=== PATIENT | female | born 1995 | race Caucasian/White ===

== ENCOUNTER 2020-02-12 17:47 | Emergency (ER) | payer OTHER ==
[2020-02-12 18:08] VITALS: BMI 23.3
[2020-02-12 19:04] LABS: EPI CELLS 2 /uL (0-25.1); HCG,QUALITATIVE URINE Positive; HYALINE CASTS 7 /uL (0-3.1); URINE APPEARANCE CLEAR; URINE BACTERIA 134 /uL (0-1359); URINE BILIRUBIN NEGATIVE (NEGATIVE); URINE COLOR YELLOW; URINE GLUCOSE (UA) NEGATIVE (NEGATIVE); URINE KETONE NEGATIVE (NEGATIVE); URINE LEUK ESTERASE 1+ (NEGATIVE); URINE NITRITE NEGATIVE (NEGATIVE); URINE PROTEIN NEGATIVE (NEGATIVE); URINE RBC 12 /uL (0-23.9); URINE WBC 121 /uL (0-25.8)
[2020-02-12] MEDS ORDERED: CEPHALEXIN MONOHYDRATE 500 MG CAPSULE (UD) PO ONE (19:43)
[2020-02-12] MEDS ORDERED: CEPHALEXIN MONOHYDRATE 500 MG CAPSULE (UD) ONE (19:46)
[2020-02-12 20:13] LABS: BASO % 0.4 % (0-2.0); EOS % 6.3 % (0-4.5); HEMATOCRIT 36.3 % (32.4-45.2); LYMPH % 28.8 % (8-40); MCH 25.8 pg (25.7-33.7); MCHC 33.1 g/dl (32.0-36.0); MEAN CELL VOLUME 78.1 fl (80-96); MEAN PLT VOLUME 7.4 fl (7.5-11.1); MONO % 5.2 % (3.8-10.2); NEUT % 59.3 % (42.8-82.8); PLATELET COUNT 340 K/MM3 (134-434); RBC 4.65 M/mm3 (3.60-5.2); RDW 13.2 % (11.6-15.6)
[2020-02-12 20:30] LABS: ALBUMIN 4.2 g/dl (3.4-5.0); CALCIUM 8.6 mg/dL (8.5-10.1)
[2020-02-12 20:31] LABS: BLOOD UREA NITROGEN 11.7 mg/dL (7-18)
[2020-02-12 20:34] LABS: CREATININE 0.6 mg/dL (0.55-1.3)
[2020-02-12 20:35] LABS: BILIRUBIN,TOTAL 0.2 mg/dL (0.2-1); TOT PROT 7.5 g/dl (6.4-8.2)
[2020-02-12 21:38] VITALS: BP 120/65; PULSE 82; TEMP 98
== END 2020-02-12 21:35 | disposition home or self-care (01) ==
LOC: JER 17:47
DX: N94.10 Unspecified dyspareunia (principal); N39.0 Urinary tract infection, site not specified
CPT/HCPCS: 36415; 76817-TC; 80053; 81003; 84702; 84703; 85025; 86850; 86900; 86901; 87086; 87491; 87591; 99285-25

== ENCOUNTER 2024-09-08 21:15 | Emergency (ER) | payer OTHER ==
[2024-09-08 21:35] VITALS: TEMP 98.5; BMI 24.0
[2024-09-09] MEDS: LIDOCAINE HCL 2% (50ML VIAL) SQ ONE (00:30)
[2024-09-09] MEDS ORDERED: IBUPROFEN 400 MG TABLET (FP) PO ONE (00:52)
[2024-09-09] MEDS ORDERED: ACETAMINOPHEN 325 MG TABLET (FP) ONE (00:52)
[2024-09-09] MEDS: IBUPROFEN 400 MG TABLET (FP) PO ONE (01:15)
[2024-09-09] MEDS: ACETAMINOPHEN 325 MG TABLET (FP) PO ONE (01:15)
[2024-09-09 04:25] VITALS: BP 119/79; PULSE 81; RESP 18
== END 2024-09-09 01:36 | disposition home or self-care (01) ==
LOC: JER 21:15 → JERFT 21:15 → JER 09-09 01:36
PROC: 0X943ZZ Drainage of Right Axilla, Percutaneous Approach (ICD-10-PCS; principal; 2024-09-08)
PROC: 0X953ZZ Drainage of Left Axilla, Percutaneous Approach (ICD-10-PCS; 2024-09-08)
DX: L02.411 Cutaneous abscess of right axilla (principal); L02.412 Cutaneous abscess of left axilla; R50.9 Fever, unspecified
CPT/HCPCS: 87070; 87205; 99283-25